=== PATIENT | female | born 1945 | race Caucasian/White ===

== ENCOUNTER 2018-03-30 22:05 | Inpatient (IN) | payer OTHER, MEDICARE ==
[~2018-03-30] VITALS: Ht 154.9 cm; Wt 67.8 kg
[~2018-03-30 22:05] MED LIST: CALCIUM 500 MG1 EACH PO; CELEXA20 MG PO; PRAVACHOL20 MG PO; SYNTHROID100 MCG PO; VITAMIN D5000 UNI1 PO
[2018-03-31 09:30] VITALS: BP 146/67
[2018-03-31 17:28] LABS: HEMATOCRIT 31.6 % (36.0-46.0); MCH 28.1 PG (29.0-34.0); MCHC 31.6 G/DL (30.0-36.0); MCV 88.8 FL (83-99); PLATELET COUNT 302 K/uL (156-360); RBC DIS.WIDTH-CV 13.2 % (11.8-14.6); RBC DIS.WIDTH-SD 43.1 % (39-53); RED BLOOD COUNT 3.56 M/uL (3.80-5.20); WHITE BLOOD COUNT 19.8 K/uL (4.1-10.2)
[2018-03-31 19:30] VITALS: BP 117/61
[2018-04-01 00:12] VITALS: BP 104/51
[2018-04-01 05:34] LABS: HEMATOCRIT 27.3 % (36.0-46.0); HEMOGLOBIN 8.8 G/DL (11.9-15.5); MCV 88.6 FL (83-99)
[2018-04-01 06:17] LABS: CHLORIDE 106 MEQ/L (99-109); CREATININE 0.8 MG/DL (0.6-1.3); GFR ESTIMATE (CALCULATED) > 59 mL/min/; GLUCOSE 151 mg/dL (70-99); POTASSIUM 4.1 MEQ/L (3.7-5.4); SODIUM 139 MEQ/L (136-147); UREA NITROGEN (BUN) 12 mg/dL (9-23)
[2018-04-01 08:11] VITALS: BP 117/54
[2018-04-01] MEDS ORDERED: CELECOXIB200 MG PO (08:18)
[2018-04-01] MEDS ORDERED: DOCUSATE SODIU100 MG PO (08:18)
[2018-04-01] MEDS ORDERED: OXYCODONE HCL5 MG PO (08:18)
[2018-04-01] MEDS ORDERED: ONDANSETRON ODT4 MG PO (08:18)
[2018-04-01] MEDS ORDERED: LOVENOX40 MG/0.4 SC (08:18)
[2018-04-01 11:55] VITALS: BP 102/53
== END 2018-04-01 13:35 | disposition home health service (06) | DRG 470 ==
LOC: ENRESERV 22:05 → 2SOUTH 03-31 08:31 → 3WEST 03-31 19:20
PROVIDERS: Orthopaedic Surgery
PROC: 0SRB02A Replacement of Left Hip Joint with Metal on Polyethylene Synthetic Substitute, Uncemented, Open Approach (ICD-10-PCS; principal; 2018-03-31)
DX: M16.12 Unilateral primary osteoarthritis, left hip (principal); F32.9 Major depressive disorder, single episode, unspecified; E03.9 Hypothyroidism, unspecified; F41.9 Anxiety disorder, unspecified; E78.00 Pure hypercholesterolemia, unspecified
CPT/HCPCS: 73501; 73502; 76000; 80048; 85014; 85018; 85027; 86850; 86900; 86901; 86920; 97530 GP; C1713; J0131; J0461; J0690; J1650; J1885; J2250; J2405; J2550; J2765; J3010; J7030; J7050